=== PATIENT | male | born 1990 | race Caucasian/White ===

== ENCOUNTER → 2016-04-21 | Outpatient (CLI) | payer OTHER ==
[~2016-04-21] MED LIST: CONRAY-43 43% 50ML VIAL (Q9960) As Ordered ONE
--- NOTE | 2016-04-21 11:53 | REP ---
MR arthrography left shoulder: with pre and post intra-articular gadolinium enhanced saline injected imaging: History: Left shoulder pain, question labral tear. Limited range of motion. No comparison radiographs. Technique: The injection procedure is performed and dictated separately. Pre and post intra-articular gadolinium enhanced saline injected imaging is acquired. Imaging planes include axial, oblique coronal, oblique sagittal and ABER projection images. T1 T2-weighted scans are included with and without fat saturation. MRI findings: Pre-injection MR imaging shows normal alignment of the glenohumeral and acromioclavicular joints. Cortical and medullary bone signal intensity are normal. There is a thin sliver of subacromial subdeltoid bursal fluid on pre-injection T2-weighted scans. There is some swelling and increased signal intensity in the distal subscapularis and in the distal supraspinatus tendon consistent with tendonitis tendinosis. Post injection imaging shows good filling and enhancement of the left glenohumeral articulation. There is no evidence of rotator cuff tear on post injection imaging. No labral tear is appreciated. Biceps tendon, infraspinatus tendon appear intact. No loose body is seen. Impression: Tendonitis tendinosis change in the subscapularis and supraspinatus tendons. No rotator cuff tear is appreciated. Signed by Jose Gallegos MD 04/21/2016 02:58 P
--- NOTE | 2016-04-21 17:01 | REP ---
LEFT SHOULDER ARTHROGRAM: The procedure was performed under the direct supervision of Dr. Gallegos. The benefits and risks including, but not limited to pain, infection, bleeding, and anaphylaxis were explained to the patient and informed consent was obtained. The left glenohumeral joint space was localized using fluoroscopic guidance. The skin was prepped and draped in a sterile fashion. 1% lidocaine was used as a local anesthetic. Using fluoroscopic guidance a 22-gauge spinal needle was inserted and advanced into the joint. 0.5 mL of Conray-43 was injected to verify placement. 11 mL of a solution containing 20 mL of sterile saline and 0.15 mL of ProHance was injected. The needle was removed and the patient was taken to MRI for postprocedural imaging. The patient tolerated the procedure well and there were no immediate complications. 1 second of fluoroscopy time was utilized for this procedure. Reviewed by ADRIA Barahona 04/22/2016 10:09 AEdited and Signed by Jose Gallegos MD 04/22/2016 10:42 A
== END ==
LOC: M RADPRO 07:03
DX: M65.812 Other synovitis and tenosynovitis, left shoulder (principal)
CPT/HCPCS: 23350; 73223; 77002; A9576; Q9960